=== PATIENT | male | born 1950 | race Caucasian/White ===

== ENCOUNTER 2018-05-13 08:10 | Day surgery (SDC) | payer BC ==
[~2018-05-13 08:10] MED LIST: Buffered Lidocaine 1% SYRIN* 1 ML/SYRINGE INTRADERM ONE; Dexamethasone IV* 4 MG/ML 1 ML (4 MG) IV SLOW PU ONE; Famotidine IV* 10 MG/ML 2 ML (20 mg) IV ONE; Lactated Ringers 1000 ML Bag* 1,000 ML IV SCH
[2018-05-13] MEDS ORDERED: Dexamethasone IV* 4 MG/ML 1 ML (4 MG) ONE (09:17)
[2018-05-13] MEDS ORDERED: cefTRIAXone(*) 2 GM ADDV.VIAL IVPB ONE (09:17)
[2018-05-13] MEDS ORDERED: Famotidine IV* 10 MG/ML 2 ML (20 mg) ONE (09:18)
[2018-05-13] MEDS ORDERED: Midazolam* 1 MG/ML 2 ML VIAL (2 MG) ONE (09:50)
[2018-05-13] MEDS ORDERED: fentaNYL* 50 MCG/ML 2 ML VIAL (100 MCG VIAL) ONE (09:50)
[2018-05-13] MEDS ORDERED: Buffered Lidocaine 1% SYRIN* 1 ML/SYRINGE INTRADERM ONE (09:51)
--- NOTE | 2018-05-13 09:56 | HP ---
CC: Dr. Ginny Bush HISTORY AND PHYSICAL: DATE OF PLANNED ADMISSION AND SURGERY: 05/13/18 HISTORY OF PRESENT ILLNESS: Mr. Santo is a 67-year-old white male who is admitted with a right ureteral calculus for cystoscopy, right ureteroscopy, laser lithotripsy, and right ureteral stent insertion. 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 Renal ultrasound had previously shown a 6 mm calculus in the right kidney. The patient presented 1 month ago with recurrent episodes of right flank pain and renal ultrasound showed that the 6 mm calculus in the right kidney was not visualized indicating it had dropped into the ureter. The patient was managed conservatively with pain medications. Recently, his pain became worse and was associated with urgency and frequency. He did not have any fever or chills. Renal and full bladder ultrasound showed mild right hydronephrosis and the 6 mm calculus about 1 to 2 cm proximal to the ureterovesical junction. The patient is planning to go to [place] for a vacation in 10 days. Because of the above history, the duration of symptoms and the patient's upcoming travel plans, endoscopic stone extraction was advised and accepted. PAST MEDICAL HISTORY AND SYSTEM REVIEW: The patient was recently diagnosed with a [place] 7 adenocarcinoma of the prostate with PSA of 5.6. He is scheduled to have a robotic radical radical prostatectomy at [facility] next month. The patient is otherwise in good health. He is hypertensive, maintained on Bystolic 2.5 mg daily. He has hyperlipidemia, on pravastatin. He takes 1 baby aspirin per day. He denies any allergies to medications. He denies any cardiac or pulmonary diseases or symptoms. Family history is negative. PHYSICAL EXAMINATION GENERAL: He is a pleasant white male, who is in moderate discomfort. VITAL SIGNS: Blood pressure 120/70, pulse of 80, temperature 98. LUNGS: Clear. HEART: Regular and rhythmic. No murmurs. ABDOMEN: Soft with mild right CVA tenderness. IMPRESSION: Recurrent episodes of right flank pain secondary to a 6 mm calculus at the right ureterovesical junction. PLAN: Plan is for cystoscopy, right ureteroscopy, laser lithotripsy, and right ureteral stent insertion. I discussed the above plans with the patient. All his questions were answered. [id number]/[facility] #: [id number] [facility]
[2018-05-13] MEDS ORDERED: Iohexol 180 (CONTRAST) 10 ML SDV IV ONE (10:12)
[2018-05-13] MEDS ORDERED: Propofol* 10 MG/ML 20 ML BTL ONE (10:14)
[2018-05-13] MEDS ORDERED: Lidocaine 2% PF * 5 ML VIAL ONE (10:14)
[2018-05-13] MEDS ORDERED: fentaNYL* 50 MCG/ML 2 ML VIAL (100 MCG VIAL) IV PRN (11:05)
[2018-05-13] MEDS ORDERED: DiMENhydriNATE IV* 50 MG/ML VIAL IV PUSH PRN (11:05)
[2018-05-13] MEDS ORDERED: Naloxone* 0.4 MG/ML 1 ML VIAL IV PRN (11:05)
[2018-05-13 11:46] VITALS: BP 145/78
--- NOTE | 2018-05-13 12:46 | OP ---
CC: Dr. Bush OPERATIVE REPORT: DATE OF OPERATION: 05/13/18 DATE OF : 50 SURGEON: Miguel Gupta MD ANESTHESIOLOGIST: Dr. Tre Martinez. ANESTHESIA: General. PRE-OP DIAGNOSIS: Distal right ureteral calculus (6 mm). POST-OP DIAGNOSIS: Distal right ureteral calculus (6 mm). OPERATIVE PROCEDURE: 1. Cystoscopy. 2. Right ureteroscopy and extraction of right ureteral calculus. 4. Right retrograde pyelography and placement of right ureteral stent (6-Singaporean ). INDICATION FOR PROCEDURE: Mr. Santo is 67-year-old white male who is a known stone former and who about 1 month ago started having symptoms of right renal colic. Renal ultrasound showed mild right hydronephrosis and there was a 6-mm calculus in the distal right ureter proximal to the ureterovesical junction. The patient is planning to go [place]. Considering the duration of his symptoms and his future travel plans and after discussing the options of management, endoscopic stone extraction was advised and accepted. PATHOLOGY AT CYSTOSCOPY: The penile and bulbar urethrae looked normal. The prostatic urethra measured 2.5 cm in length and there was moderate degree of obstruction by prostate enlargement. At cystoscopy, the bladder mucosa looked normal. There were no suspicious bladder lesions seen. No calculi or diverticula were noted. Upon right ureteroscopy, a 6-mm calculus that had the gross appearance of a calcium oxalate stone was noted in the distal ureter about 2 cm above the level of the orifice. The stone was friable and broke when engaged in the stone basket. Right retrograde pyelography showed mild right hydronephrosis. DESCRIPTION OF PROCEDURE: After successful general anesthesia, the patient was placed in the lithotomy position and was prepped and draped for a cystoscopy. Cystoscopy was performed. The bladder was carefully inspected and the above findings were noted. A flexible-tip guidewire was then introduced into the right orifice and positioned in the area of the renal pelvis under fluoroscopy guidance. A size 6.5 semirigid ureteroscope was then introduced inside the bladder. A flexible- tip basket was then introduced through the port of the ureteroscope and the flexible tip was then introduced into the right ureteral orifice alongside the guidewire. That allowed the atraumatic introduction of the ureteroscope inside the ureter. The calculus was identified. It was engaged with the basket. As the basket was closed, the stone broke into several fragments. The larger fragment measuring 5 mm was extracted and sent for stone analysis. The smaller fragments were then extracted and washed inside the bladder. Final ureteroscopy showed no residual calculi and intact ureteral wall. A right retrograde pyelography was then performed. A 6-Singaporean right ureteral stent was then placed with the proximal end coiling in the renal pelvis and the distal end coiling inside the bladder. There was good drainage of contrast from the kidney and no extravasation. The patient tolerated the procedure well and left the operating room in good condition. The plan is to leave the stent in place for 6 days. It will be removed in the office under local anesthesia. [id number]/[facility] #: [id number] [facility]
== END 2018-05-13 12:27 | disposition home or self-care (01) ==
LOC: OR 08:10
PROVIDERS: ATTEND Urology
DX: N13.2 Hydronephrosis with renal and ureteral calculous obstruction (principal); Z87.442 Personal history of urinary calculi; C61 Malignant neoplasm of prostate; I10 Essential (primary) hypertension; G47.33 Obstructive sleep apnea (adult) (pediatric); F41.9 Anxiety disorder, unspecified
CPT/HCPCS: 74420; 82365; 88300; C1876; J0696; J1100; J2250; J2704; J3010